=== PATIENT | female | born 1985 | race Caucasian/White ===

== ENCOUNTER → 2017-03-30 | Outpatient (CLI) | payer BC ==
[~2017-03-30] MED LIST: ALBU90OI INH; Bupropion Xl150 MG PO; CODACE30 PO; HYDACE5 PO; HYDGUAL120; IBUP200 PO; Jolessa1 EACH PO; LANS30PKT; LEVFLO500 PO; MAGCIT300 PO; MEDR150I; Mucinex600 MG PO; PANT40 PO; POLY17UD PO; PROM25 PO; PSEU30 PO; RXNEOPOLHC AU; RXTRAM50 PO; SERT100 PO; TRAM50 PO; [UNRECOGNIZED DRUG - REMARK]
== END | disposition home or self-care (01) ==
LOC: LAB 12:27
DX: N90.89 Other specified noninflammatory disorders of vulva and perineum (principal)
CPT/HCPCS: 87529

== ENCOUNTER → 2017-12-07 | Outpatient (CLI) | payer BC ==
[2017-12-11 14:09] LABS: HPV 16 Negative (Negative); HPV 18 Negative (Negative); HPV OTHER HR TYPES Negative (Negative)
== END ==
LOC: LAB 10:39 → LAB SHORT 10:39
PROVIDERS: Obstetrics & Gynecology
DX: Z01.419 Encounter for gynecological examination (general) (routine) without abnormal findings (principal)
CPT/HCPCS: 87624; G0123

== ENCOUNTER → 2018-05-10 | Outpatient (CLI) | payer BC ==
[2018-05-10 13:48] LABS: Source, Urine Voided
[2018-05-10 14:01] LABS: Bilirubin, Urine Neg (Neg); Blood, Urine Neg (Neg); Glucose Qualitative, Urine Neg (Neg); Ketones, Urine Neg (Neg); Leukocyte Esterase, Urine 2+ (Neg); Nitrite, Urine Neg (Neg); Protein, Urine 1+ (Neg); Urobilinogen, Urine NORM (Normal)
[2018-05-10 14:45] LABS: Appearance, Urine Hazy (Clear); Color, Urine Yellow (P-Yellow)
[2018-05-10 14:47] LABS: Bacteria Many /hpf; Calcium Oxalate Crystals Mod /hpf; Squamous Epithelial Cells Mod /hpf (Few); White Blood Cells, Urine 25-50 /hpf (0-5)
[2018-05-11 14:23] LABS: Candida species (DNA Probe) Negative (NEGATIVE); G. vaginalis (DNA Probe) Negative (NEGATIVE); T. vaginalis (DNA Probe) Negative (NEGATIVE)
== END | disposition home or self-care (01) ==
LOC: LAB 12:26 → LAB SHORT 12:26
PROVIDERS: Obstetrics & Gynecology
DX: O23.599 Infection of other part of genital tract in pregnancy, unspecified trimester (principal); O99.89 Other specified diseases and conditions complicating pregnancy, childbirth and the puerperium; R35.0 Frequency of micturition
CPT/HCPCS: 81001; 87086; 87480; 87510; 87660

== ENCOUNTER → 2018-07-22 | Outpatient (CLI) | payer BC | END | disposition home or self-care (01) | LOC: LAB 18:25 → LAB SHORT 18:25 | DX: Z34.00 Encounter for supervision of normal first pregnancy, unspecified trimester (principal) | CPT/HCPCS: 87081; 87653 ==

== ENCOUNTER 2018-08-13 20:33 | Inpatient (IN) | payer BC ==
[~2018-08-13] VITALS: Ht 157.5 cm; Wt 83.6 kg
[2018-08-13 21:13] LABS: BASOPHILS ABSOLUTE AUTO 0.04 K/mm3 (0.00-0.23); BASOPHILS PERCENT AUTO 1 % (0-2); EOSINOPHILS ABSOLUTE AUTO 0.05 K/mm3 (0.00-0.68); EOSINOPHILS PERCENT AUTO 1 % (0-6); Hematocrit 36.4 % (33.0-51.0); Hemoglobin 12.2 g/dL (11.5-16.0); IMMATURE GRAN ABSOLUTE AUTO 0.07 K/mm3 (0.00-0.10); IMMATURE GRAN PERCENT AUTO 1 % (0-1); LYMPHOCYTES ABSOLUTE AUTO 1.75 K/mm3 (0.84-5.20); LYMPHOCYTES PERCENT AUTO 29 % (21-46); MONOCYTES ABSOLUTE AUTO 0.54 K/mm3 (0.16-1.47); MONOCYTES PERCENT AUTO 9 % (4-13); Mean Corpuscular HGB 29.3 pg (26.0-34.0); Mean Corpuscular HGB Conc 33.5 g/dL (31.5-36.5); Mean Corpuscular Volume 88 fL (80-100); Mean Platelet Volume 10.9 fL (9.1-12.4); NEUTROPHILS ABSOLUTE AUTO 3.69 K/mm3 (1.96-9.15); NEUTROPHILS PERCENT AUTO 60 % (41-73); Platelet Count 229 K/mm3 (150-400); RDW Coefficient Variation 14.6 % (11.7-14.2); RDW Standard Deviation 45.8 fL (35.1-46.3); Red Blood Cell Count 4.16 M/mm3 (3.80-5.20); White Blood Cell Count 6.14 K/mm3 (4.00-11.30)
[2018-08-13] MEDS ORDERED: FLUO10 PO (21:53)
[2018-08-13] MEDS ORDERED: METF500 PO (21:54)
[2018-08-13] MEDS ORDERED: ACYC400 PO (21:55)
[2018-08-13] MEDS ORDERED: ZOLP10 PO (21:56)
[2018-08-13] MEDS ORDERED: Verotin-Gr Cap1 EACH PO (21:56)
[2018-08-13] MEDS ORDERED: DOCU100 PO (21:58)
--- NOTE | 2018-08-14 19:00 | NUR ---
REPORT TO ONCOM SHIFT
[2018-08-15 05:59] LABS: Hematocrit 35.3 % (33.0-51.0); Hemoglobin 11.7 g/dL (11.5-16.0); Mean Corpuscular HGB 29.3 pg (26.0-34.0); Mean Corpuscular HGB Conc 33.1 g/dL (31.5-36.5); Mean Corpuscular Volume 89 fL (80-100); Mean Platelet Volume 10.4 fL (9.1-12.4); Platelet Count 163 K/mm3 (150-400); RDW Coefficient Variation 14.7 % (11.7-14.2); RDW Standard Deviation 47.1 fL (35.1-46.3); Red Blood Cell Count 3.99 M/mm3 (3.80-5.20); White Blood Cell Count 11.02 K/mm3 (4.00-11.30)
--- NOTE | 2018-08-15 15:48 | NUR ---
CONSULT, HE IS ALMOST 24 HOURS OLD NOW. HAVING PROBLEMS WITH OBTAINING AND KEEPING A LATCH. MOUTH EVALUATED, LINGUAL FRENULUM PROMINENT TO TONGUE TIP AND BASE TIE, HAVING PROBLEMS EXTENDING TONGUE PAST GUMLINE, MINIMAL CURLING TO FRONT TONGUE EDGES, WEAK TO FAIR SUCTION WHILE SUCKING, BITING. LABIAL FRENULUM SOMEWHAT TIGHT ALSO, GUMS DAVID WHEN LIP EXTENDED. INSTRUCT/INFO GIVEN ABOUT FRENOTOMY, EXERCISES TO STRETCH, STRENGTHEN, AND COORDINATE. INSTRUCT MOM TO START PUMPING 8-10X/DAY FOR 15-20 MINUTES/SESSION TO STIMULATE MILK PRODUCTION. INSTRUCT/DEMO USE OF SHIELD, BABY ABLE TO LATCH ONTO SHIELD, NARROW LATCH AND CANNOT MAINTAIN LATCH WHEN CHIN PRESSURE IS APPLIED. 10CC FORMULA SNS GIVEN VIA FEEDING TUBE/SYRINGE INTO SHIELD DURING SUCKLING, HE SUCKED BETTER AND SETTLED DOWN, HAD BEEN VERY FUSSY/FRUSTRATED. MOM HAS MINIMAL DROPS OF COLOSTRUM PRODUCTION. PLAN TO CONTINE WITH SNS EVERY FEEDING UNTIL MILK IS IN WELL SO HE DOES NOT GET SO FRUSTRATED HE REFUSES TO LATCH. MOM WORKING WELL WITH HIM. INSTRUCT IN CHANGES TO EXPECT DURING THE FIRST WEEK WITH BABY AND WITH FEEDINGS.
[2018-08-16] MEDS ORDERED: IBU800 MG PO (08:48)
--- NOTE | 2018-08-16 10:07 | NUR ---
DISCHARGE INSTRUCTIONS, WRITTEN AND VERBAL, GIVEN TO PT. ANSWERED ALL QUESTIONS AND CONCERNS. ALL PERSONAL BELONGINGS RETURNED. PRESCRIPTIONS CALLED IN TO [facility] BY DR. SOLORZANO. PT IS DISCHARGED, TO BE DRIVEN HOME BY .
--- NOTE | 2018-08-16 13:02 | NUR ---
CONSULT FOLLOW UP. PARENTS HAVE DONE SUCK COORDINATION, STRENGTHENING EXERCISES ONLY A COUPLE OF TIMES. PLAN TO WAIT BEFORE HAVING FRENOTOMY DONE, WANT TO SEE HIS ABILITIES FIRST. HAS CONTINUED WITH SNS DURING FEEDINGS SO THAT HE DOES NOT GET TOO FRUSTRATED AT BREAST. MOM HAS PUMPED ONLY A FEW TIMES, INSTRUCT IN THE IMPORTANCE OF PUMPING TO BRING SUPPLY IN HE IS NOT SUCKING STRONG ENOUGH YET. SHE IS FEELING PAIN DURING SUCKLING WITH THE SHIELD. REINSTRUCT ON WIDENING THE LATCH UNTIL COMFORTABLE AND CHECKING NIPPLE SHAPE UPON HIS RELEASE, FLATTENED OR WITH A COMPRESSION STRIP IS A TOO NARROW LATCH. HAS PPFU IN 2 DAYS. WILL RE EVALUATE HIS SUCK THEN.
== END 2018-08-16 10:36 | disposition home or self-care (01) | DRG 807 ==
LOC: BC 20:33
PROVIDERS: ADMIT Obstetrics & Gynecology
PROC: 10E0XZZ Delivery of Products of Conception, External Approach (ICD-10-PCS; principal; 2018-08-14)
PROC: 0KQM0ZZ Repair Perineum Muscle, Open Approach (ICD-10-PCS; 2018-08-14)
PROC: 3E0R3BZ Introduction of Anesthetic Agent into Spinal Canal, Percutaneous Approach (ICD-10-PCS; 2018-08-14)
PROC: 3E033VJ Introduction of Other Hormone into Peripheral Vein, Percutaneous Approach (ICD-10-PCS; 2018-08-14)
DX: O24.425 Gestational diabetes mellitus in childbirth, controlled by oral hypoglycemic drugs (principal); Z37.0 Single live birth; O99.824 Streptococcus B carrier state complicating childbirth; Z3A.39 39 weeks gestation of pregnancy; O70.1 Second degree perineal laceration during delivery; Z87.891 Personal history of nicotine dependence; Z88.8 Allergy status to other drugs, medicaments and biological substances
CPT/HCPCS: 36415; 51702; 82947; 85025; 85027; J0290; J1885; J2001; J2590; J3010; J7120

== ENCOUNTER → 2018-08-25 | Outpatient (CLI) | payer BC, OTHER ==
[~2018-08-25] MED LIST changes: +ACYC400 PO; +DOCU100 PO; +FLUO10 PO; +IBU800 MG PO; +METF500 PO; +Verotin-Gr Cap1 EACH PO; +ZOLP10 PO
[2018-08-25 16:21] LABS: BASOPHILS ABSOLUTE AUTO 0.06 K/mm3 (0.00-0.23); BASOPHILS PERCENT AUTO 1 % (0-2); EOSINOPHILS ABSOLUTE AUTO 0.69 K/mm3 (0.00-0.68); EOSINOPHILS PERCENT AUTO 5 % (0-6); Hematocrit 42.8 % (33.0-51.0); Hemoglobin 13.8 g/dL (11.5-16.0); IMMATURE GRAN ABSOLUTE AUTO 0.16 K/mm3 (0.00-0.10); IMMATURE GRAN PERCENT AUTO 1 % (0-1); LYMPHOCYTES ABSOLUTE AUTO 1.54 K/mm3 (0.84-5.20); LYMPHOCYTES PERCENT AUTO 12 % (21-46); MONOCYTES ABSOLUTE AUTO 0.65 K/mm3 (0.16-1.47); MONOCYTES PERCENT AUTO 5 % (4-13); Mean Corpuscular HGB 28.9 pg (26.0-34.0); Mean Corpuscular HGB Conc 32.2 g/dL (31.5-36.5); Mean Corpuscular Volume 90 fL (80-100); Mean Platelet Volume 9.3 fL (9.1-12.4); NEUTROPHILS ABSOLUTE AUTO 10.17 K/mm3 (1.96-9.15); NEUTROPHILS PERCENT AUTO 77 % (41-73); Platelet Count 511 K/mm3 (150-400); RDW Coefficient Variation 15.4 % (11.7-14.2); RDW Standard Deviation 50.2 fL (35.1-46.3); Red Blood Cell Count 4.77 M/mm3 (3.80-5.20); White Blood Cell Count 13.27 K/mm3 (4.00-11.30)
[2018-08-25 16:44] LABS: Alanine Aminotransfer (ALT/SGP 36 U/L (12-78); Albumin, Blood 3.5 g/dL (3.4-5.0); Albumin/Globulin Ratio 0.9 (0.8-1.8); Alk Phos 151 U/L (50-136); Anion Gap 7 mmol/L (6-16); Aspartate Aminotrans (AST/SGOT 24 U/L (12-37); Bilirubin, Total 0.2 mg/dL (0.1-1.0); Blood Urea Nitrogen 18 mg/dL (8-24); Bun/Creatinine Ratio 27.3 (12.0-20.0); CO2, Blood 26 mmol/L (21-32); Calcium, Blood 9.1 mg/dL (8.5-10.1); Chloride, Blood 106 mmol/L (98-108); Creatinine, Blood 0.66 mg/dL (0.40-1.00); Globulin, Blood 3.9 g/dL (2.2-4.0); Glomerular Filtration Rate >60 (60-); Glucose, Blood 88 mg/dL (70-99); Potassium, Blood 4.2 mmol/L (3.5-5.5); Sodium, Blood 139 mmol/L (136-145); Total Protein, Blood 7.4 g/dL (6.4-8.2)
== END ==
LOC: LAB 15:03 → LAB SHORT 15:03
PROVIDERS: Physician Assistant
DX: R21 Rash and other nonspecific skin eruption (principal)
CPT/HCPCS: 80053; 85025

== ENCOUNTER → 2018-12-13 | Outpatient (CLI) | payer OTHER, BC ==
[2018-12-15 06:07] LABS: HBSAG SCREEN Negative (Negative); HCV ANTIBODY <0.1 (0.0-0.9)
[2018-12-15 10:06] LABS: HIV SCREEN 4TH GENERATION WRFX Non Reactive (Non Reactive)
== END | disposition home or self-care (01) ==
LOC: LAB EV 12:56 → LAB SHORT 12:56
PROVIDERS: Family Medicine
DX: Z20.9 Contact with and (suspected) exposure to unspecified communicable disease (principal)
CPT/HCPCS: 84460; 86317; 86803; 87340; 87389

== ENCOUNTER → 2019-01-31 | Outpatient (CLI) | payer BC, OTHER ==
[2019-02-02 10:06] LABS: HIV SCREEN 4TH GENERATION WRFX Non Reactive (Non Reactive)
== END | disposition home or self-care (01) ==
LOC: LAB EV 14:43 → LAB SHORT 14:43
PROVIDERS: Internal Medicine
DX: Z20.9 Contact with and (suspected) exposure to unspecified communicable disease (principal)
CPT/HCPCS: 86803; 87389

== ENCOUNTER → 2020-03-16 | Outpatient (CLI) | payer BC, SELFPAY | LOC: LAB 11:16 → LAB SHORT 11:16 | DX: R31.9 Hematuria, unspecified (principal) | CPT/HCPCS: 87086 ==

== ENCOUNTER → 2020-12-02 | Outpatient (CLI) | payer BC ==
[2020-12-02 14:12] LABS: Candida species (DNA Probe) Negative (NEGATIVE); G. vaginalis (DNA Probe) Positive (NEGATIVE); T. vaginalis (DNA Probe) Negative (NEGATIVE)
== END | disposition home or self-care (01) ==
LOC: LAB SHORT 10:14 → LAB 10:14
PROVIDERS: Family Medicine
DX: N89.8 Other specified noninflammatory disorders of vagina (principal)
CPT/HCPCS: 87480; 87510; 87660

== ENCOUNTER 2022-12-16 10:49 | Inpatient (IN) | payer BC ==
[~2022-12-16] VITALS: Ht 157.5 cm; Wt 88.0 kg
[2022-12-16] VITALS (22 sets, daily range): BP systolic 96–133; BP diastolic 55–82
[~2022-12-16 10:49] MED LIST changes: +HYDR1TAB94 PO; +Pepcid40 MG PO; +SERT50 PO
[2022-12-16 11:52] LABS: BASOPHILS ABSOLUTE AUTO 0.02 K/mm3 (0.00-0.23); BASOPHILS PERCENT AUTO 0 % (0-2); EOSINOPHILS ABSOLUTE AUTO 0.08 K/mm3 (0.00-0.68); EOSINOPHILS PERCENT AUTO 1 % (0-6); Hematocrit 34.3 % (33.0-51.0); Hemoglobin 11.7 g/dL (11.5-16.0); IMMATURE GRAN ABSOLUTE AUTO 0.04 K/mm3 (0.00-0.10); IMMATURE GRAN PERCENT AUTO 1 % (0-1); LYMPHOCYTES ABSOLUTE AUTO 0.98 K/mm3 (0.84-5.20); LYMPHOCYTES PERCENT AUTO 13 % (21-46); MONOCYTES ABSOLUTE AUTO 0.51 K/mm3 (0.16-1.47); MONOCYTES PERCENT AUTO 7 % (4-13); Mean Corpuscular HGB 29.9 pg (26.0-34.0); Mean Corpuscular HGB Conc 34.1 g/dL (31.5-36.5); Mean Corpuscular Volume 88 fL (80-100); Mean Platelet Volume 10.2 fL (9.1-12.4); NEUTROPHILS ABSOLUTE AUTO 6.24 K/mm3 (1.96-9.15); NEUTROPHILS PERCENT AUTO 79 % (41-73); Platelet Count 219 K/mm3 (150-400); RDW Coefficient Variation 13.7 % (11.7-14.2); RDW Standard Deviation 43.6 fL (35.1-46.3); Red Blood Cell Count 3.91 M/mm3 (3.80-5.20); White Blood Cell Count 7.87 K/mm3 (4.00-11.30)
[2022-12-16] MEDS ORDERED: CITALOPRAM HBR20 M9 PO (14:07)
[2022-12-17] VITALS (7 sets, daily range): BP systolic 106–141; BP diastolic 53–74
[2022-12-17 05:31] LABS: BASOPHILS ABSOLUTE AUTO 0.03 K/mm3 (0.00-0.23); BASOPHILS PERCENT AUTO 0 % (0-2); EOSINOPHILS ABSOLUTE AUTO 0.02 K/mm3 (0.00-0.68); EOSINOPHILS PERCENT AUTO 0 % (0-6); Hematocrit 32.3 % (33.0-51.0); IMMATURE GRAN ABSOLUTE AUTO 0.06 K/mm3 (0.00-0.10); IMMATURE GRAN PERCENT AUTO 1 % (0-1); LYMPHOCYTES ABSOLUTE AUTO 1.19 K/mm3 (0.84-5.20); LYMPHOCYTES PERCENT AUTO 9 % (21-46); MONOCYTES ABSOLUTE AUTO 0.89 K/mm3 (0.16-1.47); MONOCYTES PERCENT AUTO 7 % (4-13); Mean Corpuscular HGB 30.3 pg (26.0-34.0); Mean Corpuscular HGB Conc 34.1 g/dL (31.5-36.5); Mean Corpuscular Volume 89 fL (80-100); Mean Platelet Volume 10.2 fL (9.1-12.4); NEUTROPHILS ABSOLUTE AUTO 10.54 K/mm3 (1.96-9.15); NEUTROPHILS PERCENT AUTO 83 % (41-73); Platelet Count 208 K/mm3 (150-400); RDW Coefficient Variation 13.5 % (11.7-14.2); RDW Standard Deviation 44.1 fL (35.1-46.3); Red Blood Cell Count 3.63 M/mm3 (3.80-5.20); White Blood Cell Count 12.73 K/mm3 (4.00-11.30)
== END 2022-12-17 18:45 | disposition home or self-care (01) | DRG 806 ==
LOC: OBS 10:49 → BC 11:25
PROVIDERS: ADMIT Obstetrics & Gynecology
PROC: 10E0XZZ Delivery of Products of Conception, External Approach (ICD-10-PCS; principal; 2022-12-16)
DX: O42.02 Full-term premature rupture of membranes, onset of labor within 24 hours of rupture (principal); O99.354 Diseases of the nervous system complicating childbirth; Z37.0 Single live birth; O24.420 Gestational diabetes mellitus in childbirth, diet controlled; Z3A.00 Weeks of gestation of pregnancy not specified; O99.344 Other mental disorders complicating childbirth; F41.9 Anxiety disorder, unspecified; F32.A Depression, unspecified; O99.284 Endocrine, nutritional and metabolic diseases complicating childbirth; E78.00 Pure hypercholesterolemia, unspecified; G43.909 Migraine, unspecified, not intractable, without status migrainosus; Z88.1 Allergy status to other antibiotic agents; Z87.891 Personal history of nicotine dependence; Z86.19 Personal history of other infectious and parasitic diseases
CPT/HCPCS: 36415; 82947; 85025; 86850; 86900; 86901; A9270; J0290; J1885; J2590; J7120